=== PATIENT | male | born 1955 | race Caucasian/White ===

== ENCOUNTER → 2017-07-31 09:45 | Outpatient (CLI) | payer BC ==
[2016-02-21 13:24] VITALS: BMI 38.0
[~2017-07-31 09:45] MED LIST: ATIVAN1 MG PO; CARAFATE1 G PO; CARDIZEM120 MG PO; HYDROCHLOROTH12.5 M1 PO
== END | disposition home or self-care (01) ==
LOC: D.CT 09:30
DX: G45.9 Transient cerebral ischemic attack, unspecified (principal); R27.0 Ataxia, unspecified